=== PATIENT | male | born 1960 | race Caucasian/White ===

== ENCOUNTER → 2017-07-14 | Outpatient (CLI) | payer OTHER ==
--- NOTE | 2017-07-14 11:57 | MR ---
EXAMINATION TYPE: MR cspine/lspine wo con DATE OF EXAM: 07/14/2017 COMPARISON: MRI cervical spine December 21, 2014. HISTORY: Cervicalgia and lumbago per order. Right shoulder pain with numbness and tingling, into righ t arm and fingers for years per patient. Low back pain for years per patient. TECHNIQUE: Multiplanar, multisequence imaging of the cervical and lumbar spine are performed without IV contrast. FINDINGS: C-SPINE: FINDINGS: Sagittal images of the cervical spine show the craniocervical junction to appear within nor mal limits. The cervical and upper thoracic spinal cord is normal in course, caliber, and signal. V ertebral alignment is anatomic. The vertebral body and intravertebral disk heights are normal. Small posterior disc herniations are redemonstrated at C3-C4 and C6-C7 levels on sagittal images mildly ef facing anterior thecal sac. The bone marrow signal intensity is within normal limits. No significant spurring is seen. There is mild mucosal thickening in visualized portion of right sphenoid and maxill fox sinus. Axial images show the C2-C3 level to remain within normal limits. Axial images at C3-C4 level show mild broad based posterior disc protrusion mildly effacing anterior thecal sac with uncovertebral facet degenerative changes causing fairly moderate bilateral neural for aminal narrowing on axial image 42, no significant change from prior study is seen. Axial images at C4-C5 level with show uncovertebral facet degenerative changes bilaterally contributi ng to mild bilateral neural foraminal narrowing. Spinal canal is preserved. Axial images at C5-C6 level show small broad-based right paracentral disc protrusion mildly effacing anterolateral thecal sac, bilateral neural foramina are patent. No significant change from prior stud y is seen. Axial images at C6-C7 level shows broad-based central disc protrusion mildly effacing anterior thecal sac. There is uncovertebral facet degenerative changes bilaterally causing asymmetric mild to modera te left greater than right neural foraminal narrowing. No significant change from prior study is seen . Axial images at C7-T1 level are within normal limits. There is suspected cystic change in the thyroid gland, for reference axial image 1 shows 8mm nodule p osteriorly. IMPRESSION: Multilevel degenerative changes in the cervical spine as detailed above without significa nt change from prior MRI. Advise thyroid ultrasound follow-up to further assess suspected thyroid nod ules. L-SPINE: There is levoconvex scoliosis centered near the thoracolumbar junction. Sagittal images of the lumbar spine show vertebral body heights and alignment to appear satisfactory. There is multilevel disc yuli iccation and mild to moderate multilevel disc space narrowing. The conus medullaris is normal in pos ition and signal ending at mid L1 level. The bone marrow signal intensity is within normal limits. N o significant spurring is present. Axial images show the T12-L1 level to appear within normal limits. Axial images at L1-L2 level show mild to moderate broad-based posterior disc protrusion mildly effaci ng anterior thecal sac on axial image 28. There is mild facet degenerative changes bilaterally. Bilat eral neural foramina are patent. Axial images at L2-L3 level show mild broad disc bulge with broad-based right lateral disc protrusion component. There is mild facet degenerative changes seen bilaterally. Right-sided neural foramen is mildly narrowed anteriorly. Left-sided neural foramen is patent. Axial images at the L3-L4 level show moderate broad disc bulge. There is mild to moderate facet degen erative changes and ligament flavum hypertrophy. There is mild effacement of the anterior and bilater al posterior lateral thecal sac on axial image 17. There is mild to moderate bilateral anterior infer ior neural foraminal narrowing. Some encroachment on right L3 nerve on sagittal image 12 is suspected . Axial images at the L4-L5 level show mild to moderate left greater than right facet degenerative perry ges bilaterally. There is broad disc bulge with left lateral disc protrusion component on axial image 11. Spinal canal is minimally effaced. Right-sided neural foramen is patent. There is more moderate to severe left-sided neural foraminal narrowing with suspected encroachment on left L4 nerve seen on sagittal image 5 and axial image 11. Axial images at L5-S1 level show mild facet degenerative changes bilaterally. There is broad-based ce ntral disc protrusion minimally effacing the anterior thecal sac. Bilateral neural foramina are paten t. Paraspinal muscle bulk is preserved. IMPRESSION: Multilevel degenerative changes in the lumbar spine as detailed above, suspect encroachme nt on right L3 nerve at L3-L4 level and left L4 nerve at L4-L5 level.
== END ==
LOC: RADMRIMAIN 10:15
PROVIDERS: ATTEND Psychiatry & Neurology Pain Medicine
DX: M47.812 Spondylosis without myelopathy or radiculopathy, cervical region (principal); M47.816 Spondylosis without myelopathy or radiculopathy, lumbar region
CPT/HCPCS: 72141; 72148

== ENCOUNTER → 2019-02-05 | Outpatient (CLI) | payer OTHER ==
[2019-02-05 13:21] LABS: Basophils % (A) 1 %; Eosinophils # (A) 0.3 k/uL (0-0.7); Eosinophils % (A) 6 %; HCT 38.7 % (39.0-53.0); HGB 13.1 gm/dL (13.0-17.5); Lymphocytes # (A) 0.9 k/uL (1.0-4.8); Lymphocytes % (A) 18 %; MCH 32.7 pg (25.0-35.0); MCHC 33.9 g/dL (31.0-37.0); MCV 96.5 fL (80.0-100.0); Mean Platelet Volume 6.9; Monocytes # (A) 0.3 k/uL (0-1.0); Monocytes % (A) 6 %; Neutrophils # (A) 3.2 k/uL (1.3-7.7); Neutrophils % (A) 67 %; Platelet Count 211 k/uL (150-450); RBC 4.01 m/uL (4.30-5.90); RDW 13.6 % (11.5-15.5); WBC 4.8 k/uL (3.8-10.6)
[2019-02-05 14:49] LABS: Erythrocyte Sedimentation Rate 7 mm/hr (0-15)
[2019-02-05 18:50] LABS: ALT 28 U/L (10-49); AST 26 U/L (14-35); Albumin/Globulin Ratio 2.37 (1.60-3.17); Alkaline Phosphatase 55 U/L (41-126); C Reactive Protein <0.4 mg/dL (0.0-0.8); Calcium 9.5 mg/dL (8.7-10.3); Carbon Dioxide 28.3 mmol/L (21.6-31.8); Chloride 103 mmol/L (96-109); Globulin 1.9 g/dL (1.6-3.3); Glucose 85 mg/dL (70-110); Potassium 4.7 mmol/L (3.5-5.5); Sodium 136 mmol/L (135-145); Total Bilirubin 0.9 mg/dL (0.3-1.2); Total Protein 6.4 g/dL (6.2-8.2)
[2019-02-05 20:29] LABS: Thyroid Peroxidase Antibodies 1162.5 U/mL (0.0-60.0)
== END | disposition home or self-care (01) ==
LOC: LABWHC1 12:40
PROVIDERS: ATTEND Allergy & Immunology
DX: L50.9 Urticaria, unspecified (principal)
CPT/HCPCS: 36415; 80053; 84443; 85025; 85652; 86140; 86160; 86376; 86800; 88184; 88185

== ENCOUNTER → 2019-02-28 | Outpatient (CLI) | payer OTHER ==
--- NOTE | 2019-03-01 09:45 | US ---
EXAMINATION TYPE: US thyroid st tissue head/neck DATE OF EXAM: 02/28/2019 COMPARISON: NONE CLINICAL HISTORY: 58-year-old male E06.3 Autoimmune thyroiditis. Abnormal thyroid function TECHNIQUE: Multiple sonographic images of the thyroid gland are obtained. FINDINGS: GLAND SIZE: Right Lobe: 4.0 x 1.5 x 1.3 cm Overall Parenchyma: heterogenous Left Lobe: 4.4 x 1.5 x 1.5 cm Overall Parenchyma: heterogeneous Isthmus Thickness: 0.2 cm There is mild generalized hyperemia. NODULES RIGHT: # of nodules measured on right: 1 1. 0.7 X 0.5 x 0.5 cm hypoechoic nodule at the upper pole with well-defined margins. This nodule i s wide as tall and shows intranodular vascularity. Prior size: No prior LEFT: # of nodules measured on left: 1 1. 0.4 X 0.3 x 0.4 cm echogenic nodule at the upper pole with well-defined margins. This nodule is taller than wide and shows intranodular vascularity. Prior size: No prior ISTHMUS: # of nodules measured in the isthmus: 0 Bilateral neck scanned, no evidence of lymphadenopathy. IMPRESSION: 1. Mild generalized hyperemia within the thyroid gland could represent diffuse thyroiditis. 2. A single nodule on each side measuring 7 mm on the right and 4 mm on the left. Follow-up can be co nsidered.
== END | disposition home or self-care (01) ==
LOC: RADUSWWP 16:24
PROVIDERS: ATTEND Allergy & Immunology
DX: E04.2 Nontoxic multinodular goiter (principal); R68.89 Other general symptoms and signs
CPT/HCPCS: 76536

== ENCOUNTER → 2021-11-01 | Outpatient (CLI) | payer BC ==
--- NOTE | 2021-11-01 16:05 | US ---
EXAMINATION TYPE: US scrotum with doppler. Grayscale and color Doppler Duplex imaging performed of alexa berg scrotum. DATE OF EXAM: 11/01/2021 COMPARISON: NONE CLINICAL HISTORY: N43.3 Hydrocele. EXAM MEASUREMENTS: TESTICLES: Right Testicle: 4.3 x 2.0 x 3.3 cm Left Testicle: 4.1 x 3.0 x 3.1 cm EPIDIDYMIS HEAD: Right Epididymis: 1.1 x 0.5 x 1.0 cm Left Epididymis: 1.4 x 1.1 x 1.1 cm Doppler performed to assess for testicular vascularity; bilateral color flow and waveforms are seen. Presence of hydroceles: There appears to be a large fluid collection medial to the left testicle 6.1 x 3.7 x 5.1 cm. Presence of varicoceles: No There are two anechoic area noted in the right lateral testicle measuring 0.3 x 0.2 x 0.3 cm and 0.5 x 0.4 x 0.5 cm. There is also an anechoic focus in the mid portion of the left testicle measuring 0.6 x 0.5 x 0.6 cm. IMPRESSION: Cystic lesions within the right and left testis are indeterminate, follow-up. There is a sizable left hydrocele. Some low-level internal echoes consistent with debris.
== END | disposition home or self-care (01) ==
LOC: RADUSWWP 15:24
PROVIDERS: ATTEND Urology
DX: N43.3 Hydrocele, unspecified (principal)
CPT/HCPCS: 76870; 93975

== ENCOUNTER → 2022-01-25 | Outpatient (CLI) | payer BC ==
[2022-01-26 00:36] LABS: T4, Free (Free Thyroxine) 1.71 ng/dL (0.800-1.800)
== END | disposition home or self-care (01) ==
LOC: LABWHC1 09:38
PROVIDERS: ATTEND Internal Medicine
DX: E03.9 Hypothyroidism, unspecified (principal)
CPT/HCPCS: 36415; 84439; 84443

== ENCOUNTER → 2022-07-25 | Outpatient (CLI) | payer BC ==
[2022-07-25 15:12] LABS: PSA Annual Screen 1.2 ng/mL (0.000-4.000); T4, Free (Free Thyroxine) 1.22 ng/dL (0.800-1.800)
== END | disposition home or self-care (01) ==
LOC: LABWHC1 09:16
PROVIDERS: ATTEND Internal Medicine
DX: Z29.9 Encounter for prophylactic measures, unspecified (principal); Z12.5 Encounter for screening for malignant neoplasm of prostate; E03.9 Hypothyroidism, unspecified
CPT/HCPCS: 84439; 84443; 36415; G0103

== ENCOUNTER → 2022-09-28 | Outpatient (CLI) | payer BC ==
--- NOTE | 2022-09-28 11:58 | US ---
EXAMINATION TYPE: US liver DATE OF EXAM: 09/28/2022 COMPARISON: NONE CLINICAL HISTORY: 62-year-old male E83.119 HEMOCHROMATOSIS. TECHNIQUE: Multiple sonographic images of the right upper quadrant are obtained. FINDINGS: EXAM MEASUREMENTS: Liver Length: 15.2 cm Gallbladder Wall: 0.2 cm CBD: 0.3 cm Right Kidney: 10.0 x 3.9 x 4.6 cm Pancreas: obscured by overlying midline bowel gas Liver: wnl Gallbladder: wnl Evidence for sonographic Pena's sign: no CBD: visualized portions wnl, limited by overlying bowel gas Right Kidney: Limited detail visualization of both the upper and lower pole due to the shadowing fro m bowel gas. No hydronephrosis. IMPRESSION: Suboptimal visualization of the pancreas. Otherwise, normal homogeneous ultrasound appears to the judy er. No gallstones or biliary ductal dilatation.
== END | disposition home or self-care (01) ==
LOC: RADUSWWP 06:54
PROVIDERS: ATTEND Internal Medicine Hematology & Oncology
DX: E83.119 Hemochromatosis, unspecified (principal)
CPT/HCPCS: 76705

== ENCOUNTER → 2023-01-29 | Outpatient (CLI) | payer BC ==
[2023-01-29 15:57] LABS: African American GFR (CKD) 96.4 (60.0-200.0); Albumin 4.6 g/dL (3.8-4.9); Albumin/Globulin Ratio 2.2 (1.60-3.17); Anion Gap 7.1 mmol/L (10.00-18.00); BUN/Creat Ratio 12.01 Ratio (12.00-20.00); Blood Urea Nitrogen 11.6 mg/dL (9.0-27.0); Calcium 9.9 mg/dL (8.7-10.3); Globulin 2.1 g/dL (1.6-3.3); Non-African American GFR(CKD) 83.2 (60.0-200.0); Total Bilirubin 0.3 mg/dL (0.30-1.20); Total Protein 6.7 g/dL (6.2-8.2)
== END | disposition home or self-care (01) ==
LOC: LABWHC1 08:02
PROVIDERS: ATTEND Internal Medicine
DX: E03.9 Hypothyroidism, unspecified (principal)
CPT/HCPCS: 36415; 80053; 84443

== ENCOUNTER → 2023-07-30 | Outpatient (CLI) | payer BC ==
[2023-07-30 14:43] LABS: T4, Free (Free Thyroxine) 1.61 ng/dL (0.80-1.80)
[2023-07-30 15:03] LABS: PSA Annual Screen 2.1 ng/mL (0.000-4.000)
== END | disposition home or self-care (01) ==
LOC: LABWHC1 08:31
PROVIDERS: ATTEND Internal Medicine
DX: Z12.5 Encounter for screening for malignant neoplasm of prostate (principal); Z29.9 Encounter for prophylactic measures, unspecified; E03.9 Hypothyroidism, unspecified
CPT/HCPCS: 84439; 84443; 36415; G0103

== ENCOUNTER → 2024-01-31 | Outpatient (CLI) | payer BC ==
[2024-01-31 11:56] LABS: ALT 26 U/L (10-49); AST 19 U/L (14-35); Albumin 4.3 g/dL (3.8-4.9); Albumin/Globulin Ratio 2.15 Ratio (1.60-3.17); Alkaline Phosphatase 65 U/L (41-126); Blood Urea Nitrogen 12.9 mg/dL (9.0-27.0); Carbon Dioxide 25.9 mmol/L (21.6-31.8); Chloride 102 mmol/L (96-109); Glucose 92 mg/dL (70-110); Potassium 4.1 mmol/L (3.5-5.5); Sodium 138 mmol/L (135-145); Total Bilirubin 0.5 mg/dL (0.3-1.2); Total Protein 6.3 g/dL (6.2-8.2)
== END | disposition home or self-care (01) ==
LOC: LABWHC1 07:43
PROVIDERS: ATTEND Internal Medicine
DX: E83.119 Hemochromatosis, unspecified (principal); E03.9 Hypothyroidism, unspecified
CPT/HCPCS: 36415; 80053; 84443

== ENCOUNTER → 2024-04-02 | Outpatient (CLI) | payer BC ==
--- NOTE | 2024-04-03 00:12 | US ---
EXAMINATION TYPE: US abdomen complete DATE OF EXAM: 04/02/2024 COMPARISON: US CLINICAL INDICATION: Male, 63 years old with history of E83.119 HEMOCHROMATOSIS; Abnormal labs TECHNIQUE: Multiple sonographic images of the abdomen are obtained. FINDINGS: EXAM MEASUREMENTS: Liver Length: 11.1 cm Gallbladder Wall: 0.2 cm CBD: 0.5 cm Spleen: 8.8 cm Right Kidney: 10.0 x 4.4 x 4.3 cm Left Kidney: 10.0 x 5.0 x 4.3 cm BOARD OPERATOR NOTES: Pancreas: Obscured by bowel gas Liver: wnl Gallbladder: wnl Evidence for sonographic Pena's sign: No CBD: wnl Spleen: wnl Right Kidney: wnl Left Kidney: Upper pole gassed out, lower pole shows hypoechoic lesion= 1.7 x 1.4 x 1.6 cm Upper IVC: wnl Abd Aorta: Proximal portion gassed out mid and distal portions wnl IMPRESSION: 1. Left renal cyst
== END | disposition home or self-care (01) ==
LOC: RADUSWWP 08:50
PROVIDERS: ATTEND Internal Medicine Hematology & Oncology
DX: N28.1 Cyst of kidney, acquired (principal); E83.119 Hemochromatosis, unspecified; E03.9 Hypothyroidism, unspecified; M12.9 Arthropathy, unspecified; Z71.3 Dietary counseling and surveillance
CPT/HCPCS: 76700

== ENCOUNTER → 2024-07-28 | Outpatient (CLI) | payer BC ==
[2024-07-28 10:41] LABS: ALT 25 U/L (10-49); AST 19 U/L (14-35); Albumin 4.3 g/dL (3.8-4.9); Albumin/Globulin Ratio 2.05 Ratio (1.60-3.17); Alkaline Phosphatase 69 U/L (41-126); BUN/Creat Ratio 10.82 Ratio (12.00-20.00); Blood Urea Nitrogen 11.9 mg/dL (9.0-27.0); Calcium 9.4 mg/dL (8.7-10.3); Carbon Dioxide 25.2 mmol/L (21.6-31.8); Chloride 105 mmol/L (96-109); Globulin 2.1 g/dL (1.6-3.3); Glucose 97 mg/dL (70-110); LDL Cholesterol,Calculated 98.8 mg/dL (0.0-131.0); Potassium 4.4 mmol/L (3.5-5.5); Sodium 139 mmol/L (135-145); Total Bilirubin 0.4 mg/dL (0.3-1.2); Total Protein 6.4 g/dL (6.2-8.2); VLDL Calculation 8.36 mg/dL (5.00-40.00)
== END | disposition home or self-care (01) ==
LOC: LABWHC1 07:37
PROVIDERS: ATTEND Internal Medicine
DX: Z12.5 Encounter for screening for malignant neoplasm of prostate (principal); Z29.9 Encounter for prophylactic measures, unspecified; E78.5 Hyperlipidemia, unspecified; E03.9 Hypothyroidism, unspecified
CPT/HCPCS: 36415; 80053; 80061; 84443

== ENCOUNTER → 2025-05-05 | Outpatient (CLI) | payer MEDICARE, BC ==
--- NOTE | 2025-05-05 11:44 | US ---
EXAMINATION TYPE: US abdomen complete DATE OF EXAM: 05/05/2025 COMPARISON: 04/02/2024 CLINICAL INDICATION: Male, 64 years old with history of E83.119 HEMOCHROMATOSIS, UNSPECIFIED TECHNIQUE: Grayscale and color Doppler imaging of the abdomen was performed. FINDINGS: EXAM MEASUREMENTS: Liver Length: 11.1 cm Gallbladder Wall: 0.2 cm CBD: 5.4 mm, color Doppler imaging was utilized to isolate the common bile duct for measurement. Spleen: 9.8 cm Right Kidney: 10.8 x 4.3 x 4.7 cm Left Kidney: 10.8 x 5.5 x 4.5 cm Pancreas: Obscured by bowel gas Liver: wnl, no dilated ducts, masses or cysts. Gallbladder: wnl Evidence for sonographic Pena's sign: No CBD: wnl Spleen: wnl Right Kidney: No hydronephrosis. There is a small 7 mm mid pole cyst. Left Kidney: Hydronephrosis. There is a lower pole cortical cyst measuring 1.6 cm. Upper IVC: wnl Abd Aorta: wnl IMPRESSION: Suboptimal visualization of the pancreas. No gallstones or biliary ductal dilatation. A couple benign renal cysts measuring up to 1.6 cm. [facility], , 05/05/2025 11:41 AM
== END | disposition home or self-care (01) ==
LOC: RADUSWWP 09:26
PROVIDERS: ATTEND Internal Medicine Hematology & Oncology
DX: N28.1 Cyst of kidney, acquired (principal); E83.119 Hemochromatosis, unspecified; M12.9 Arthropathy, unspecified; E03.9 Hypothyroidism, unspecified; Z71.3 Dietary counseling and surveillance
CPT/HCPCS: 76700